=== PATIENT | female | born 1975 | race Caucasian/White ===

== ENCOUNTER 2022-04-23 09:41 | Outpatient (CLI) | payer OTHER, SELFPAY ==
--- NOTE | ~2022-04-23 | US_ITS ---
EXAMINATION: US soft tissue LE RT DATE: 04/23/2022 10:16 INDICATION: Mass at the posterior right thigh TECHNIQUE: Multiple grayscale and Doppler ultrasound images of the region of concern at the posterior right thigh were obtained. COMPARISON: None FINDINGS: There is a superficial 1.9 x 1.9 x 0.9 cm subcutaneous mass at the region of concern with identical e chogenicity and echotexture to the surrounding subcutaneous fat. No abnormal internal vascular flow o r surrounding hyperemia on color Doppler. IMPRESSION: 1. Nonspecific 1.9 x 1.9 x 0.9 cm subcutaneous mass which is nearly indiscernible from the surroundin g subcutaneous fat which would be most consistent with as well as statistically most likely to repres ent a lipoma. Reviewed, dictated and finalized at location L. RDING ARTIST IMPRESSION: 1. Nonspecific 1.9 x 1.9 x 0.9 cm subcutaneous mass which is nearly indiscernib le from the surrounding subcutaneous fat which would be most consistent with as well as statistically most likely to represent a lipoma.
== END 2022-04-23 09:42 ==
PROVIDERS: PCP Physician Assistant; Visit Provider Physician Assistant
DX: R22.41 Localized swelling, mass and lump, right lower limb (principal)
CPT/HCPCS: 76882

== ENCOUNTER → 2022-11-12 07:10 | Outpatient (CLI) | payer OTHER, SELFPAY ==
--- NOTE | ~2022-11-12 | MR_ITS ---
EXAMINATION: MR knee RT wo con DATE: 11/12/2022 07:54 INDICATION: Acute right knee pain. TECHNIQUE: Magnetic resonance imaging (MRI) of the right knee was performed without intravenous contr ast. Sequences included axial PD-weighted FS FSE, coronal PD-weighted FSE and PD-weighted FS FSE, sag ittal PD-weighted FSE, and sagittal T2-weighted FS FSE. COMPARISON: None. FINDINGS: Medial compartment: Medial meniscus is normal. There is cartilage surface irregularity of tibial condyle. There is deep p artial thickness cartilage loss of femoral condyle involving the central articular surface and shallo w partial-thickness cartilage loss of femoral condyle involving the lateral articular surface. There are tiny osteophytes. Lateral compartment: Lateral meniscus is normal. Lateral compartment cartilage is normal. Patellofemoral compartment: There is shallow partial-thickness cartilage loss of patellar medial and lateral facets and median ri dge. There is full-thickness cartilage loss of central trochlea with subchondral cysts and mild subch ondral edema-like marrow signal intensity. Ligaments and tendons: The anterior and posterior cruciate ligaments are normal. There is a partial tear of medial collatera l ligament characterized by enlargement, increased signal intensity and surrounding edema. Lateral co llateral ligament complex is normal. There is mild patellar tendinopathy. Fluid: There is a small knee joint effusion. There is mild prepatellar and superficial infrapatellar bursiti s. IMPRESSION: 1. 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 2. Grade 2 sprain of medial collateral ligament. 3. Small knee joint effusion. Reviewed, dictated and finalized at location A. IMPRESSION: 1. Severe chondrosis of patellofemoral compartment and moderate chondrosis of m edial compartment. 2. Grade 2 sprain of medial collateral ligament. 3. Small knee joint effusion.
== END ==
DX: M25.461 Effusion, right knee (principal); S83.411A Sprain of medial collateral ligament of right knee, initial encounter; X58.XXXA Exposure to other specified factors, initial encounter
CPT/HCPCS: 73721